=== PATIENT | female | born 1950 | race Caucasian/White ===

== ENCOUNTER → 2024-05-30 | Outpatient (CLI) | payer MEDICARE ==
[~2024-05-30] VITALS: Ht 167.6 cm; Wt 82.8 kg
[~2024-05-30] MED LIST: AMBIEN 10MG10 MG PO; EUTHYROX25 MCG PO; FLONASEALLERGY NS; LIPITOR 10MG10 MG PO; NORCO 325 MG-51 TAB PO; PROAIR HFA0.09 MG/AC IH; RT ADVAIR 528 DISKUS IH; SINGULAIR 110 MG/TAB PO; TYLENOL 500MG500 MG PO; ULTRAM 50MG TAB50 MG PO
[2024-05-30 11:13] VITALS: BP 131/81; PULSE 91; TEMP 97.6
[2024-05-30 12:27] VITALS: BP 115/71; PULSE 79
--- NOTE | 2024-05-30 13:07 | NUR ---
PATIENT COMPLETED RECOVERY PERIOD WITHOUT ANY ISSUES. PATIENT DENIES BEING IN ANY PAIN AND HER BANDAGE REMAINS CLEAN, DRY, AND INTACT. PATIENT DRANK SOME JUICE WITHOUT ANY ISSUES AND DECLINED FOOD. PATIENT ABLE TO TEACH BACK D/C INSTRUCTIONS. PATIENT ESCORTED OUT TO PATIENT ENTRANCE VIA WHEELCHAIR WITH ALL OF HER PERSONAL ITEMS AND PAPERWORK. PATIENT ABLE TO GET INTO THE FRONT PASSENGER SEAT WITHOUT ANY ISSUES OR ASSISTNACE. ALL NEEDS MET.
[2024-05-30 13:40] LABS: PERITONEAL -POLYMORPHONUCLEAR 15.1 % (0-25)
== END ==
LOC: COL.RAD 10:30
PROVIDERS: Internal Medicine
DX: C56.9 Malignant neoplasm of unspecified ovary (principal)
CPT/HCPCS: 19804

== ENCOUNTER → 2024-06-16 | Outpatient (CLI) | payer MEDICARE ==
[~2024-06-16] VITALS: Ht 167.6 cm; Wt 75.6 kg
[~2024-06-16] MED LIST changes: +ASPIRIN 81M81 MG/TA2 PO; +DOXYCYCLINE HY100 MG PO; +PREDNISONE10 MG PO; +SYNTHROID0.112 MG/T PO; +ZOFRAN ODT4 MG PO
[2024-06-16 10:58] VITALS: BP 106/73; PULSE 95; TEMP 98.9
[2024-06-16 12:00] VITALS: BP 92/61; PULSE 93
[2024-06-16 12:30] LABS: PERITONEAL -POLYMORPHONUCLEAR 22.4 % (0-25)
== END ==
LOC: COL.RAD 10:32
PROVIDERS: Internal Medicine
DX: C56.9 Malignant neoplasm of unspecified ovary (principal)

== ENCOUNTER 2024-06-17 17:42 | Inpatient (IN) | payer MEDICARE ==
[~2024-06-17] VITALS: Ht 165.1 cm; Wt 72.0 kg
[~2024-06-17 17:42] MED LIST changes: -ASPIRIN 81M81 MG/TA2 PO; -DOXYCYCLINE HY100 MG PO; -PREDNISONE10 MG PO; -SYNTHROID0.112 MG/T PO; -ZOFRAN ODT4 MG PO
--- NOTE | 2024-06-17 19:40 | NUR ---
Arrived from [facility] via EMS, helped get pt settled in bed- report from EMS, Vitals 97.8, 83, 16, 94% RA, 91/47 . Pt extremely weak, bed alarm on, fall risk protocol followed, Did send staff down to get tele box-- lisa PENNY aware pt is here- will look at paperwork and come see pt and write orders. Pt incontinent of liquid stool, cleaned up, has PORT that is accessed to left chest, has abd incision from surgery back in april that has not healed center area open with packing-- will repack when Lisa PENNY comes to see pt and she can assess also.
[2024-06-17 19:45] VITALS: BP 91/47; PULSE 83; TEMP 97.8
[2024-06-17 20:24] VITALS: BP_SYST 102
[2024-06-17] MEDS ORDERED: Acetaminophen 325 MG TAB PO PRN (20:30)
[2024-06-17] MEDS ORDERED: Ondansetron 4 MG/2 ML VIAL IV PRN (20:30)
[2024-06-17] MEDS ORDERED: *Potassium Replacement Protocol MC SCH (20:45)
[2024-06-17] MEDS ORDERED: Potassium Chloride 100 ML IV SCH ×2 (20:45→22:15)
--- NOTE | 2024-06-17 20:50 | NUR ---
Lisa PENNY here to see pt, We did look at incision together, center of abd midline incision is open-plum sized - said to just repack with wet to dry small kerlix, cover with occlusive, also has small area at top of incision that has not healed but not deep for packing-- said to just put on bandaid,, both areas were swabbed for culture- multiple orders written at this time- has port that is accessed but due to large amount of IV meds to be given withh need a couple peripheral lines also- pt alert/oriented x4--
[2024-06-17] MEDS ORDERED: SYNTHROID0.112 MG/T PO (20:55)
[2024-06-17] MEDS ORDERED: Zolpidem 10 MG TAB PO PRN (21:00)
[2024-06-17] MEDS ORDERED: Albuterol 0.083% Neb Soln 2.5 MG/3 ML UD IH PRN (21:00)
[2024-06-17 21:04] LABS: INR 1.5 (0.8-3.0); PROTHROMBIN TIME 15.6 SECONDS (9.7-12.8)
[2024-06-17 21:17] LABS: CALCIUM 7.3 mg/dL (8.4-10.2); CREATININE, serum 0.62 mg/dL (0.57-1.11); PHOSPHOROUS 2.6 mg/dL (2.3-4.7)
[2024-06-17 21:25] LABS: POTASSIUM 2.5 mEq/L (3.5-4.5)
[2024-06-17] MEDS ORDERED: Vancomycin 1.5 GM,Special Dose/Pharmacy Prepared 1.5 GM in NS 250 ML IV SCH (21:30)
[2024-06-17] MEDS ORDERED: Magnesium Sulfate 4% 50 ML IV ONE (21:45)
[2024-06-17] MEDS ORDERED: Albumin (Human) 100 ML IV SCH (21:45)
[2024-06-17] MEDS ORDERED: Glucagon 1 MG VIAL IM PRN (22:00)
[2024-06-17] MEDS ORDERED: Dextrose (Glucose) 15 GM (4 x 3.75 GM) Chewable TABLET PACK PO PRN (22:00)
[2024-06-17] MEDS ORDERED: Dextrose 50% Water 25 GM/50 ML SYRINGE IV PRN (22:00)
--- NOTE | 2024-06-17 22:00 | NUR ---
Sent down per wheelchair for CT of abdomen-
[2024-06-17] MEDS ORDERED: Iohexol 300 - 100 ML VIAL IV ONE (22:12)
[2024-06-17] MEDS ORDERED: Vancomycin 1.25 GM,Special Dose/Pharmacy Prepared 1.25 GM in NS 250 ML IV ONE (22:15)
--- NOTE | 2024-06-17 22:45 | NUR ---
BS 62, Lisa aware-- also aware of Potassium of 2.5-- states has hypo glycemic protocol ordered.- also potassium protocol. will give the dextrose tabs as ordered.
[2024-06-17] MEDS ORDERED: LR 1,000 ML IV SCH (23:00)
--- NOTE | 2024-06-17 23:00 | NUR ---
geothermal powerplant supervisor and Nate PENNY here to start some peripheral IV sites- did have to wrap arms with warm wraps first-- able to get 22g x2, one to left wrist and one to right forearm ---has orderes for Potassium IV x5 bags, Magnesium IV, Calcium IV, Albumin IV x 2bags, IV Zosyn, IV vancomycin, and LR,, Tele on SR.
[2024-06-17 23:28] VITALS: BP 102/65; PULSE 85; TEMP 98.3
[2024-06-17 23:38] LABS: CLOSTRIDIUM DIFF A/B NEG
[2024-06-18] VITALS (11 sets, daily range): BP systolic 90–121; BP diastolic 58–72; PULSE 67–85; TEMP 97.6–99.1
--- NOTE | 2024-06-18 00:05 | NUR ---
Pt has been trying to take the dextrose tabs for the past hour- states just cant tolerate them-- blood sugar now 55- will instead give the D50 per orders.
--- NOTE | 2024-06-18 01:16 | NUR ---
Bloos sugar up to 92 at this time, pt has been assymptomatic - VSS.
--- NOTE | 2024-06-18 01:30 | NUR ---
Stool specimens sent to lab came back negative for c-diff -has had 4-5 episodes of liquid stool
[2024-06-18 04:52] LABS: COLLECTION METHOD CLEAN CATCH
[2024-06-18 05:05] LABS: URINE APPEARANCE CLEAR (CLEAR/HAZY); URINE BLOOD TRACE (NEGATIVE); URINE COLOR YELLOW (YELLOW); URINE GLUCOSE NEGATIVE (NEGATIVE); URINE KETONE 2+ (NEGATIVE); URINE NITRATE NEGATIVE (NEGATIVE); URINE PROTEIN(semi-quant) NEGATIVE (NEGATIVE); URINE UROBILINOGEN 0.2 E.U/dL (0.2-1.0)
--- NOTE | 2024-06-18 05:51 | NUR ---
Did send urine down to lab per orders, has been able to rest for about an hour,, did have a orange jello,but did feel slightly nauseated after eating. Tele on
[2024-06-18 06:42] LABS: HEMOGLOBIN 10.7 g/dl (12.5-16.0); MEAN CELL VOLUME 83 fl (80.0-100.0); MEAN CORPUSCULAR HEMOGLOBIN 29 pg (27-31); MEAN CORPUSCULAR HGB CONC 35 g/dl (33.0-37.0); MEAN PLATELET VOLUME 10.8 fl (7.4-10.4); PLATELET COUNT 242 K/mm3 (130-400); RED BLOOD COUNT 3.71 M/mm3 (4.10-5.30); REDCELL DISTRIBUTION WIDTH-CV 14.6 % (11.5-14.5)
[2024-06-18 06:55] LABS: HEMATOCRIT 30.8 % (37.0-47.0)
--- NOTE | 2024-06-18 07:03 | NUR ---
74 yo female admitted for further care and management of sepsis of unclear etiology. ht 165.1 cm wt 68.2 kg SCr 0.62 with estimated CrCl ~60 ml/min half life 11.9 hours Plan: Will give an initial loading dose of vancomycin 1250 mg x1 (18.3 mg/kg); followed by a maintenance regimen of vancmycin 1000 mg q12h to target a goal trough of 15-20 mcg/ml. Will follow patient's renal function, micro data, and vancomycin levels as indicated to assess for any necessary changes to regimen. Thank you for this dosing consult.
[2024-06-18 07:08] LABS: ALBUMIN 2.4 g/dL (3.4-4.8); BILIRUBIN,TOTAL 0.3 mg/dL (0.2-1.2); CALCIUM 7.7 mg/dL (8.4-10.2); CREATININE, serum 0.61 mg/dL (0.57-1.11); TOTAL PROTEIN 4.3 g/dl (6.2-8.1)
[2024-06-18 07:10] LABS: POTASSIUM 2.7 mEq/L (3.5-4.5)
--- NOTE | 2024-06-18 07:23 | NUR ---
NOTIFIED OF CRITICAL LAB RESULTS.
--- NOTE | 2024-06-18 08:02 | NUR ---
PATIENT HAD CRITICAL LAB VALUE AT 0600. BLOOD GLUCOSE 67. THIS RN RECHECKED BG. BLOOD GLUCOSE NOW 69. THIS RN PUSHED IV DEXTROSE PER PROTOCOL. DR SCHULER NOTIFIED. NO NEW ORDERS AT THIS TIME. WILL RECHECK BLOOD GLUCOSE AT 0815.
--- NOTE | 2024-06-18 08:04 | NUR ---
CRITICAL LAB VALUE CALLED TO CHARGE NURSE. WBC 29.0. POTASSIUM 2.6. DR SCHULER NOTIFIED. NO NEW ORDERS AT THIS TIME. WILL FOLLOW POTASSIIUM PROTOCOL AT THIS TIME. PATIENT MONITORED ON TELEMETRY.
[2024-06-18 08:08] LABS: BAND 15 % (0-10); EOSINOPHIL 2 % (0-4); LYMPHOCYTE 5 % (20.0-51.0); MYELOCYTE 1 % (0-0); NEUTROPHILS 70 % (42.0-75.2)
[2024-06-18 08:09] LABS: BURR CELLS 1+; PLATELET ESTIMATE NORMAL (NORMAL)
[2024-06-18 08:10] LABS: OVALOCYTES 1+
[2024-06-18] MEDS ORDERED: *Potassium Replacement Protocol MC SCH (08:15)
[2024-06-18] MEDS ORDERED: Potassium Chloride 100 ML IV SCH (08:15)
--- NOTE | 2024-06-18 08:20 | NUR ---
PATIENT'S BLOOD GLUCOSE IMPROVED AFTER IV DEXTROSE. BLOOD GLUCOSE IS 107. PATIENT IS ASYMPTOMATIC, ALERT AND ORIENTED. DENIES NEEDS OR CONCERNS AT THIS TIME.
[2024-06-18] MEDS ORDERED: Pantoprazole 40 MG in NS 10 ML IV SCH (09:00)
--- NOTE | 2024-06-18 09:41 | NUR ---
SW met with patient to complete initial assessment for discharge planning. Patient verified that she lives in [place] with her /ED Mckeon ([phone]). She is changing to Dr. Coe for PCP due to Dr. Lanza retiring. Patient uses [facility]. She has a walker, toilet riser, shower chair and grab bars. Patient states she is "feeling awful" and started vomiting during visit. Discussed with RN Asael who states that Palliative consult is placed on chart. SW will continue to follow for discharge plans Discharge plan: TBD
--- NOTE | 2024-06-18 10:00 | NUR ---
PATIENT RESTING IN BED. ALERT AND ORIENTED. SHIFT ASSESSMENT COMPLETE. MIDLINE INCISION TO ABDOMEN IS CDI, WITH GAUZE AND TEGADERM IN PLACE. PATIENT HAD INCONTINENT EPISODE OF LOOSE STOOL. WHILE CLEANING UP PATIENT THIS RN NOTED EXCORIATION/IRRITATION SURROUNDING THE ANUS AREA. THIS RN APPLIED THE 3 STEP BARRIER TX. PATIENT COMPAINING OF A BURNING SENSATION WHEN WIPING AND BARRIER CREAM APPLICATION. PATIENT C/O NAUSEA AND HAS HAD A FEW EPISODES OF EMESIS. THIS RN ADMINISTERED ZOFRAN PRN. EMESIS IS GREEN AND CLEAR. PATIENT DENIES PAIN, BUT STATES HAVING GENERALIZED DISCOMFORT IN ADDITION TO THIS N/V. PORT AND PERIPHERAL IVS ARE PATENT AND CDI. ALL NEEDS MET DURING THIS VISIT. CALL LIGHT WITHIN REACH.
[2024-06-18] MEDS ORDERED: dexAMETHasone 10 MG/ML VIAL IV SCH (12:45)
--- NOTE | 2024-06-18 14:43 | NUR ---
THIS RN ATTEMPTED TO INSERT NGTUBE. WHEN ADVANCEING NG TUBE. PATIENT STARTED TO YELL THAT "I THINK IT BROKE. JUST TAKE IT OUT!" THIS RN CHECKED, THE NGTUBE WAS NOT COMING OUT OF THE MOUTH." PATIENT INSISTED IT BE PULLED DESPITE ENCOURAGEMENT. NGTUBE REMOVED,INTACT. PAIENT SHOWN THIS, HOWEVER DESPITE ENCOURAGMENT PATIENT REFUSING NGTUBE REINSERTION. PER PATIENT "I WOULD RATHER JUST THROW UP, EMERALD BEEN THORUGH ALOT IN MY LIFE. I JUST WANT TO GO HOME AND SLEEP IN MY OWN BED." PATIENTS ASSIGNED RN NOTIFED AND HOSPITALIST DR SCHULER NOTIFIED. PER TORB BY DR SCHULER THIS RN CAN DC NGTUBE PLACEMENT ORDERS.
--- NOTE | 2024-06-18 20:00 | NUR ---
Patient resting in bed. States she has some pain but denies pain meds at this time. Bedding changed, bed bath provided, ice chips provided. Denies any other needs. Assessment complete. IV in right forearm removed due to redness and pain when flushing. IV in left forearm flushes easliy without complications. Port to left chest flushes easliy with good blood return. Dressing to midline incision has some draining. Call light and personal items in reach. Bed in low position and bed alarm on.
[2024-06-19 00:28] VITALS: BP 105/70; PULSE 90; TEMP 98.2
[2024-06-19] MEDS ORDERED: Potassium Chloride 100 ML IV SCH (00:45)
[2024-06-19 01:36] VITALS: BP_SYST 105
[2024-06-19 03:29] VITALS: BP 107/73; PULSE 83; TEMP 98
[2024-06-19 06:28] VITALS: BP_SYST 107
[2024-06-19 07:06] LABS: HEMOGLOBIN 12.6 g/dl (12.5-16.0); MEAN CELL VOLUME 84 fl (80.0-100.0); MEAN CORPUSCULAR HEMOGLOBIN 30 pg (27-31); MEAN CORPUSCULAR HGB CONC 35 g/dl (33.0-37.0); MEAN PLATELET VOLUME 11.1 fl (7.4-10.4); PLATELET COUNT 226 K/mm3 (130-400); RED BLOOD COUNT 4.27 M/mm3 (4.10-5.30); REDCELL DISTRIBUTION WIDTH-CV 15.1 % (11.5-14.5)
[2024-06-19 07:18] LABS: HEMATOCRIT 35.7 % (37.0-47.0)
[2024-06-19 07:25] LABS: ALBUMIN 2.2 g/dL (3.4-4.8); BILIRUBIN,TOTAL 0.2 mg/dL (0.2-1.2); CALCIUM 7.5 mg/dL (8.4-10.2); CREATININE, serum 0.66 mg/dL (0.57-1.11); TOTAL PROTEIN 4.6 g/dl (6.2-8.1)
[2024-06-19 08:00] VITALS: BP_SYST 119
[2024-06-19 08:12] VITALS: BP 119/71; PULSE 81; TEMP 98.1
[2024-06-19 08:17] LABS: BAND 19 % (0-10); LYMPHOCYTE 1 % (20.0-51.0); METAMYELOCYTE 2 % (0-0); NEUTROPHILS 76 % (42.0-75.2); PLATELET ESTIMATE NORMAL (NORMAL)
--- NOTE | 2024-06-19 09:19 | NUR ---
PATIENT RESTING IN BED. ALERT AND ORIENTED. SHIFT ASSESSMENT COMPLETE. VSS. STILL HAVING EPISODES OF EMESIS. CLEAR, DARK GREEN EMESIS NOTED IN BASIN. CONTINUES TO HAVE INCONTINENT STOOL. ANUS IS STILL EXCORIATED, 3 STEP BARRIER PROTECTION APPLIED. WOUND CARE ORDER CHECKER PACKER PROCESSER CHANGED ABDOMINAL DRG WITH GUAZE AND TEGADERM IN PLACE. THIS RN CHANGED PORT DRESSING D/T DRESSING NOT BEING INTACT. STUDENT NURSE ADMINSTERED MEDICATIONS WITH THIS RN'S SUPERVISION. PATIENT TOLERATED WELL. STATES SHE "IS GOING HOME TODAY." THIS RN PROVIDED SUPPORT TO PATIENT, AND ASSURES THE DR WILL BE IN SOON. CALL LIGHT WITHIN REACH. DENIES PAIN OR DISCOMOFRT AT THIS TIME. ALL NEEDS MET AT THIS VISIT.
[2024-06-19] MEDS ORDERED: PREDNISONE10 MG PO (09:33)
[2024-06-19] MEDS ORDERED: ZOFRAN ODT4 MG PO (09:34)
--- NOTE | 2024-06-19 09:37 | NUR ---
SW attended clinical rounds. Attending discussed goals of care with patient and was told by patient that she "just wants to go home today". Patient states she has an appointment at [address] Abbott and will discuss goals of care with him. MARIANA met with patient who states she has everything at home needed for return. Patient will be transported by her . Discharge plan: Home with family
[2024-06-19] MEDS ORDERED: LORazepam 2 MG/ML 1 ML VIAL IV ONE (09:45)
[2024-06-19] MEDS ORDERED: dexAMETHasone 10 MG/ML VIAL IV ONE (09:45)
[2024-06-19] MEDS ORDERED: DOXYCYCLINE HY100 MG PO (11:36)
[2024-06-19] MEDS ORDERED: ASPIRIN 81M81 MG/TA2 PO (11:45)
--- NOTE | 2024-06-19 12:20 | NUR ---
MARIANA Mi met with patient and who chose to have referral sent to [facility]. Referral sent via secure email.
--- NOTE | 2024-06-19 12:45 | NUR ---
THIS RN GAVE PATIENT AND DISCHARGE EDUCATION AND INSTRUCTIONS. ALL QUESTIONS ANSWERED. IV TO RFA DISCONTINUED. MINIMAL DRAINAGE NOTED. PORT DEACCESSED PER PROTOCOL. PATIENT TOLERATED WELL. NO DRAINAGE NOTED. COVERED WITH BANDAID. DENIES FURTHER NEEDS OR CONCERNS AT THIS TIME.
--- NOTE | 2024-06-19 12:58 | NUR ---
PATIENT ESCORTED OFF UNIT AT APPROX 1250 VIA WHEELCHAIR BY PCT. AND PATIENT HAVE ALL BELONGINGS.
--- NOTE | 2024-06-19 16:31 | NUR ---
milking worker attended interdisciplinary clinical rounding with Dr. Webster. Patient would like to return home. SW was notified by patient's that they would need some support at home through home health. MARIANA provided the Medicare[employer]gov list of home health options. Patient and her chose [facility] if [facility] not accept. MARIANA Deann secure emailed referral and discharge orders to [facility]. MARIANA was notified [facility] is able to accept patient. Discharge plan: Home with [facility] Health - [facility]
--- NOTE | 2024-06-21 12:46 | NUR ---
putty and patch worker received a call from [facility] whom expressed patient's pharmacy did not receive the prednisone. SW notified Dr. Webster whom is going to look at resending that medication to [facility].
== END 2024-06-19 12:50 | disposition home or self-care (01) | DRG 872 ==
LOC: MEDICAL 17:42
PROVIDERS: Nurse Practitioner Family; ADMIT Internal Medicine
DX: A41.9 Sepsis, unspecified organism (principal); R18.8 Other ascites; K56.609 Unspecified intestinal obstruction, unspecified as to partial versus complete obstruction; E87.6 Hypokalemia; E16.2 Hypoglycemia, unspecified; E88.09 Other disorders of plasma-protein metabolism, not elsewhere classified; R53.81 Other malaise; E78.5 Hyperlipidemia, unspecified; E03.9 Hypothyroidism, unspecified; G47.00 Insomnia, unspecified; Z66 Do not resuscitate
CPT/HCPCS: J0612; J0780; J1100; J1650; J2060; J2405; J2470; J2543; J3370; J3475; J3480; J7050; J7120; P9047; Q9967

== ENCOUNTER 2024-06-27 09:50 | Inpatient (IN) | payer MEDICARE ==
[~2024-06-27] VITALS: Ht 165.1 cm; Wt 70.3 kg
[~2024-06-27 09:50] MED LIST changes: +ASPIRIN 81M81 MG/TA2 PO; +DOXYCYCLINE HY100 MG PO; +PREDNISONE10 MG PO; +SYNTHROID0.112 MG/T PO; +ZOFRAN ODT4 MG PO
[2024-06-27 10:57] LABS: HEMOGLOBIN 12.1 g/dl (12.5-16.0); MEAN CELL VOLUME 85 fl (80.0-100.0); MEAN CORPUSCULAR HEMOGLOBIN 29 pg (27-31); MEAN CORPUSCULAR HGB CONC 34 g/dl (33.0-37.0); MEAN PLATELET VOLUME 10.2 fl (7.4-10.4); PLATELET COUNT 273 K/mm3 (130-400); REDCELL DISTRIBUTION WIDTH-CV 15.8 % (11.5-14.5)
[2024-06-27 11:00] LABS: HEMATOCRIT 35.5 % (37.0-47.0)
[2024-06-27 11:13] LABS: ALBUMIN 1.9 g/dL (3.4-4.8); BILIRUBIN,TOTAL 0.3 mg/dL (0.2-1.2); CALCIUM 7.4 mg/dL (8.4-10.2); CREATININE, serum 4.93 mg/dL (0.57-1.11); POTASSIUM 3.5 mEq/L (3.5-4.5)
[2024-06-27] MEDS ORDERED: NS 1,000 ML IV ONE ×2 (11:15)
[2024-06-27] MEDS ORDERED: cefTRIAXone 1 G in Water For Injection,Sterile 10 ML IV ONE (11:15)
[2024-06-27 12:30] LABS: ANISOCYTOSIS 1+; BAND 26 % (0-10); LYMPHOCYTE 6 % (20.0-51.0); METAMYELOCYTE 1 % (0-0); MYELOCYTE 1 % (0-0); NEUTROPHILS 61 % (42.0-75.2); PLATELET ESTIMATE NORMAL (NORMAL)
[2024-06-27] MEDS ORDERED: Ondansetron 4 MG/2 ML VIAL IV PRN ×2 (14:45→15:30)
[2024-06-27] MEDS ORDERED: Acetaminophen 325 MG TAB PO PRN (14:45)
--- NOTE | 2024-06-27 14:55 | NUR ---
Pt arrived to medical floor from ED by bed. Report received from CECILIA Chavira in ED. Admission assessment and intake completed. Pt is A&O x4. ABD midline wound noted in assessment. KULDEEP Jones notified about wound and instructed this nurse to apply ABD pad with gauze to wound. Pt reports generalized pain rating 3/10. Port-a-cath to Lt upper chest accessed with IVF infusing without complications. Oriented pt to room, call light, and bathroom. Fall precautions in place. Unable to complete medication rec due to pt stating she takes no current medications at this time and does not know her home med list. Pt has no request at this time. Call light within reach and contact precautions in place.
--- NOTE | 2024-06-27 14:59 | NUR ---
Had a Palliative Care meeting with pt, Carolina PEÑA and Dr. Zayas. Pt confirmed that she wanted to be a DNR. 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 Recent admit 06/17 for Sepsis. Scheduled paracentesis 06/29. Pt is Nauseated during conversation. Pt stated, " I am done with this. I was done a week ago." When pt was asked if she wanted Hospice care she stated that she would like her /son to be there to discuss this. Carolina gave short explanations of Hospice at home vs a facility but this also will be discussed tomorrow with family. Creat 4.93- 06/19 Creat 0.66. WBC 32.0.
[2024-06-27] MEDS ORDERED: NS 1,000 ML IV SCH (15:00)
--- NOTE | 2024-06-27 15:02 | NUR ---
Filbert Grower participated in a meeting with patient, LEOBARDO Gonzalez, and Dr. Dozier to discuss goals of care. Patient is being admitted to the medical floor. Patient stated she has felt "done" for the last week or so and is interested in hospice services. SW reviewed different options for hospice including home with hospice, hospice in a nursing facility, and the [facility]. Patient would prefer not to pass at home so was not interested in home hospice. Patient stated she plans to talk with her , Chay and sonRolando this evening when they visit and will review options. SW attempted to contact patient's , Mike "Chay" and left a message.
[2024-06-27] MEDS ORDERED: Scopolamine 1 MG Delivered 3-Day PATCH TD SCH (15:30)
[2024-06-27] MEDS ORDERED: LORazepam 2 MG/ML 1 ML VIAL IV PRN (15:30)
[2024-06-27] MEDS ORDERED: Morphine Oral Concentrate 20 MG/ML UD SL PRN (15:30)
[2024-06-27 15:39] VITALS: BP_SYST 108
[2024-06-27 15:57] VITALS: BP 118/65; PULSE 64; TEMP 98.4
[2024-06-27 16:30] VITALS: BP_SYST 118
[2024-06-27 16:49] LABS: CLOSTRIDIUM DIFF A/B NEG
--- NOTE | 2024-06-27 20:10 | NUR ---
Patient resting in bed. Rates her pain at 5/10 in her upper abd, prn pain meds given. Needs met. Assessment complete. Port flushes easily with good blood return. Assissted patient to bathroom and back to bed. Call light and personal items in reach. Bed in low position and bed alarm on.
[2024-06-27] MEDS ORDERED: Zolpidem 10 MG TAB PO PRN (20:15)
[2024-06-27 20:36] VITALS: BP 107/71; PULSE 69; TEMP 97.5
[2024-06-27 21:00] VITALS: BP_SYST 107
[2024-06-28 01:23] VITALS: BP_SYST 107
[2024-06-28 08:30] VITALS: BP_SYST 107
--- NOTE | 2024-06-28 10:06 | NUR ---
Rounding with Dr. Oreilly, MARIANA Mi, myself, SW student Lucia, Mike, son Ever, daughter Renetta, daughter in law Pavan. Dr. Oreilly reviewed case with the family and pt. Pt stated clearly that she wanted Hospice. Dr. Oreilly validated that this is a good choice in light of the scenerio the pt is facing. Hiwot will review choices with the family for discharge. Encouraged family to consider how they will manage Hospice at home and help with the care of the pt. They will be discussing this.
[2024-06-28 10:08] LABS: PATHOLOGY DIFF REVIEW OK
--- NOTE | 2024-06-28 10:14 | NUR ---
Bedside report received from CECILIA Smith. Pt resting in bed awake with no complaints. Call light within reach and fall precautions in place.
[2024-06-28] MEDS ORDERED: TRANSDERM-0.5 MG/21 TD (12:18)
[2024-06-28] MEDS ORDERED: SYSTANE 0.4%-0.1 SOL OU (12:18)
[2024-06-28] MEDS ORDERED: ROXANOL 20MG20 MG/ML SL (12:18)
[2024-06-28] MEDS ORDERED: ATIVAN 1MG T1 MG/TAB PO (12:18)
[2024-06-28] MEDS ORDERED: DULCOLAX S10 MG/SUPP RC (12:18)
--- NOTE | 2024-06-28 12:48 | NUR ---
Discharge paperwork provided to pt son and pt son is to take discharge paperwork to hospice house. Port-a-cath de-accessed by CECILIA Bernal. Pt tolerated well with no complications. Pt [facility]
--- NOTE | 2024-06-28 12:50 | NUR ---
Attempted to call [facility] x2 and received voicemail. Unable to leave voicemail at this time due to [facility] not having voicemail set up.
--- NOTE | 2024-06-28 17:10 | NUR ---
Child Care Worker followed up with patient, son Rolando, daughter Terese and Chay to discuss hospice options. They would like a referral sent to [facility]. MARIANA contacted [facility] and sent her a referral via secure email. [facility] followed up and stated they could take patient today. Family agrees to transport via private car. MARIANA sent discharge orders to [facility] via secure email.
[2024-06-28] MEDS ORDERED: Zolpidem 10 MG TAB PO PRN (21:00)
== END 2024-06-28 12:51 | disposition hospice, home (50) | DRG 683 ==
LOC: COL.ER 09:50 → MEDICAL 12:21
PROVIDERS: Personal Emergency Response Attendant; ADMIT Internal Medicine
DX: N17.9 Acute kidney failure, unspecified (principal); C56.9 Malignant neoplasm of unspecified ovary; C78.6 Secondary malignant neoplasm of retroperitoneum and peritoneum; R18.8 Other ascites; J90 Pleural effusion, not elsewhere classified; E87.20 Acidosis, unspecified; Z51.5 Encounter for palliative care; T81.31XA Disruption of external operation (surgical) wound, not elsewhere classified, initial encounter; Z66 Do not resuscitate; E46 Unspecified protein-calorie malnutrition; J30.9 Allergic rhinitis, unspecified; G47.00 Insomnia, unspecified; F32.A Depression, unspecified; E78.5 Hyperlipidemia, unspecified; E88.09 Other disorders of plasma-protein metabolism, not elsewhere classified; J98.4 Other disorders of lung; D35.02 Benign neoplasm of left adrenal gland; D72.825 Bandemia; E03.9 Hypothyroidism, unspecified; Z88.8 Allergy status to other drugs, medicaments and biological substances; Z79.82 Long term (current) use of aspirin; Z79.899 Other long term (current) drug therapy; Z79.890 Hormone replacement therapy; Z87.891 Personal history of nicotine dependence; Z68.24 Body mass index [BMI] 24.0-24.9, adult
CPT/HCPCS: J0696; J2405; J7030